=== PATIENT | female | born 1940 | race Caucasian/White ===

== ENCOUNTER 2016-11-22 09:32 | Emergency (ER) | payer MEDICARE, OTHER ==
[~2016-11-22] VITALS: Ht 167.6 cm; Wt 75.6 kg
[~2016-11-22 09:32] MED LIST: ASCO500T8 PO; ASPI-515 PO; CALC-545 PO; ERGO400T2 PO; EZET1TAB4 PO; LEVO50TA PO; MULT-717 PO
[2016-11-22] MEDS ORDERED: SODIUM CHLORIDE 0.9% 1,000 ML IV ONE (10:18)
[2016-11-22] MEDS ORDERED: MORPHINE SULFATE 4 MG/ML, 1ML ONE (10:28)
[2016-11-22] MEDS ORDERED: ONDANSETRON 2MG/ML, 2ML ONE (10:28)
[2016-11-22] MEDS ORDERED: SODIUM CHLORIDE 0.9% 1,000ML IVBOLUS ONE (10:30)
[2016-11-22] MEDS ORDERED: MORPHINE SULFATE 4 MG/ML, 1ML IVPush PRN (10:30)
[2016-11-22] MEDS ORDERED: ONDANSETRON 2MG/ML, 2ML IVPush ONE (10:30)
[2016-11-22 11:01] LABS: DIFF TOTAL CELLS COUNTED 100 CELL DIFF
[2016-11-22 11:03] LABS: BLOOD UREA NITROGEN 23 mg/dL (7-18)
[2016-11-22 11:11] LABS: VERIFY COUNTS? YES
[2016-11-22 12:36] VITALS: BP 155/88
[2016-11-22] MEDS ORDERED: OMNIPAQUE 350 MG/ML, 75ML BOTTLE ONE (12:36)
== END 2016-11-22 15:35 | disposition home or self-care (01) ==
LOC: ED 10:56
DX: S22.42XA Multiple fractures of ribs, left side, initial encounter for closed fracture (principal); W19.XXXA Unspecified fall, initial encounter; Y93.89 Activity, other specified; Y92.009 Unspecified place in unspecified non-institutional (private) residence as the place of occurrence of the external cause; Y99.9 Unspecified external cause status
CPT/HCPCS: 36415; 71020; 71260; 80048; 82040; 85025; 96361; 96374; 96375; 99285; J2405; J7030; Q9967

== ENCOUNTER 2017-11-22 10:31 | Day surgery (SDC) | payer MEDICARE, OTHER ==
[~2017-11-22] VITALS: Ht 167.6 cm; Wt 72.3 kg
[~2017-11-22 10:31] MED LIST changes: +EZET1TAB30 PO; -EZET1TAB4 PO
[2017-11-22 11:05] VITALS: BP 142/94
[2017-11-22] MEDS ORDERED: ASPI-650 PO (11:18)
[2017-11-22] MEDS ORDERED: ROSU10TA PO (11:18)
[2017-11-22] MEDS ORDERED: MIDAZOLAM 1 MG/ML, 5ML ONE (11:40)
[2017-11-22] MEDS ORDERED: FENTANYL PF 100 MCG/2ML ONE (11:40)
[2017-11-22 11:41] LABS: INTERNATIONAL NORMALIZED RATIO 0.95 (0.93-1.1); PROTHROMBIN TIME 9.9 Seconds (9.6-11.5)
[2017-11-22] MEDS ORDERED: LIDOCAINE 2%, 2ML ONE (11:41)
[2017-11-22] MEDS ORDERED: MIDAZOLAM 1 MG/ML, 2ML ONE (11:43)
[2017-11-22 11:44] LABS: CHLORIDE 110 mmol/L (98-107)
[2017-11-22 11:45] LABS: ANION GAP 9 mmol/L (5-15); CALCIUM 8.9 mg/dL (8.5-10.1); CREATININE 0.77 mg/dL (0.55-1.02)
== END 2017-11-22 14:25 | disposition home or self-care (01) ==
LOC: CACL 10:31
PROVIDERS: ATTEND Internal Medicine Cardiovascular Disease
DX: R06.02 Shortness of breath (principal); I10 Essential (primary) hypertension; E78.5 Hyperlipidemia, unspecified
CPT/HCPCS: 36415; 80048; 85610; 93451; 99156; C1894; J2250; J3010; J3490

== ENCOUNTER → 2018-03-03 | Outpatient (CLI) | payer MEDICARE, OTHER ==
[~2018-03-03] MED LIST changes: +ASPI-650 PO; +ROSU10TA PO
== END | disposition home or self-care (01) ==
LOC: CFH 13:14
PROVIDERS: ATTEND Internal Medicine
DX: D71 Functional disorders of polymorphonuclear neutrophils (principal); K44.9 Diaphragmatic hernia without obstruction or gangrene
CPT/HCPCS: 71250

== ENCOUNTER → 2019-07-02 | Outpatient (CLI) | payer MEDICARE, OTHER ==
[~2019-07-02] MED LIST changes: +CLON0.1T22 PO; +MULT1TAB60 PO; -ROSU10TA PO; +ROSU10TA2 PO; +SIMV20TA3 PO
== END | disposition home or self-care (01) ==
LOC: CVU 08:50
PROVIDERS: ATTEND Internal Medicine Cardiovascular Disease
DX: M79.604 Pain in right leg (principal); M79.662 Pain in left lower leg
CPT/HCPCS: 93922

== ENCOUNTER 2019-09-28 01:52 | Emergency (ER) | payer MEDICARE, OTHER ==
[~2019-09-28] VITALS: Ht 168.9 cm; Wt 68.1 kg
[~2019-09-28 01:52] MED LIST changes: +SIMV20TA19 PO; -SIMV20TA3 PO
[2019-09-28] MEDS ORDERED: TRANEXAMIC ACID 100 MG/ML, 10ML IV ONE (02:00)
[2019-09-28] MEDS ORDERED: TRANEXAMIC ACID 100 MG/ML, 10ML ONE (02:27)
[2019-09-28] MEDS ORDERED: ASPI-650 PO (03:09)
[2019-09-28] MEDS ORDERED: LIDOCAINE 1%-EPI 1:100K, 20ML ONE (03:33)
--- NOTE | 2019-09-28 03:33 | NUR ---
Bleeding persists after TXA dressing applied.
[2019-09-28] MEDS ORDERED: NEOSPORIN OINT. PKT 1 PACKET ONE (03:43)
[2019-09-28 04:03] VITALS: BP 129/68
== END 2019-09-28 04:25 | disposition home or self-care (01) ==
LOC: ED 02:44
DX: S81.811A Laceration without foreign body, right lower leg, initial encounter (principal); I87.2 Venous insufficiency (chronic) (peripheral); Z86.39 Personal history of other endocrine, nutritional and metabolic disease; X58.XXXA Exposure to other specified factors, initial encounter; Y93.89 Activity, other specified; Y92.009 Unspecified place in unspecified non-institutional (private) residence as the place of occurrence of the external cause; Y99.8 Other external cause status
CPT/HCPCS: 12001; 99283

== ENCOUNTER → 2019-11-08 | Outpatient (CLI) | payer MEDICARE, OTHER ==
[~2019-11-08] MED LIST changes: +CALC1CAP8 PO; +ROSU5TAB PO; +Vitamin D PO
[2019-11-08 15:53] LABS: BASOPHILS # (AUTO) 0.07 x10^3/uL (0-0.1); BASOPHILS % (AUTO) 1 % (0-1); EOSINOPHILS # (AUTO) 0.22 x10^3/uL (0-0.4); EOSINOPHILS % (AUTO) 3 % (1-7); LYMPHOCYTES # (AUTO) 2.48 x10^3/uL (1-3.4); LYMPHOCYTES % (AUTO) 32 % (22-44); MD NO; MEAN CORPUSCULAR HEMOGLOBIN 29.7 pg (27.0-34.8); MEAN CORPUSCULAR HGB CONC 32.1 g/dL (32.4-35.8); MEAN CORPUSCULAR VOLUME 92.5 fL (80-100); MONOCYTES # (AUTO) 0.84 x10^3/uL (0.2-0.8); MONOCYTES % (AUTO) 11 % (2-9); NEUTROPHILS # (AUTO) 4.27 x10^3/uL (1.8-6.8); NEUTROPHILS % (AUTO) 54 % (42-75); PLATELET COUNT 252 x10^3/uL (130-400); RED BLOOD COUNT 3.59 x10^6/uL (3.82-5.3); RED CELL DISTRIBUTION WIDTH 14.8 % (9.6-15.2)
[2019-11-08 15:59] LABS: ANION GAP 6 mmol/L (5-15); CALCIUM 9.1 mg/dL (8.5-10.1); CHLORIDE 111 mmol/L (98-107); CREATININE 0.75 mg/dL (0.55-1.02)
== END | disposition home or self-care (01) ==
LOC: STAR 15:02
PROVIDERS: ATTEND Orthopaedic Surgery
DX: Z01.818 Encounter for other preprocedural examination (principal); S83.241A Other tear of medial meniscus, current injury, right knee, initial encounter; R94.31 Abnormal electrocardiogram [ECG] [EKG]; X58.XXXA Exposure to other specified factors, initial encounter; Y93.89 Activity, other specified; Y92.89 Other specified places as the place of occurrence of the external cause; Y99.8 Other external cause status
CPT/HCPCS: 36415; 80048; 85025; 87081; 87147; 93005

== ENCOUNTER 2019-11-19 07:53 | Observation (INO) | payer MEDICARE, OTHER ==
[~2019-11-19] VITALS: Ht 167.6 cm; Wt 74.1 kg
[~2019-11-19 07:53] MED LIST changes: +EPINEPHRINE 1 MG/ML, 1ML ONE; +KETOROLAC 60 MG/2 ML ONE; +ROPIvacaine/PF 0.2%, 20 ML ONE; +SODIUM CHLORIDE 0.9% 50 ML ONE; +TRANEXAMIC ACID 100 MG/ML, 10ML ONE
[2019-11-19] MEDS ORDERED: LACTATED RINGERS 1,000 ML IV SCH (08:20)
[2019-11-19 08:21] VITALS: BP 156/89
[2019-11-19] MEDS ORDERED: FENTANYL PF 250 MCG/5ML ONE (08:28)
[2019-11-19] MEDS ORDERED: LIDOCAINE-MPF 1%, 2ML INFIL ONE (08:30)
[2019-11-19] MEDS ORDERED: CHLORHEXIDINE 15 ML UDC ONE (08:32)
[2019-11-19] MEDS ORDERED: CEFAZOLIN 1,000 MG ONE (09:16)
[2019-11-19] MEDS ORDERED: SUCCINYLCHOLINE 20 MG/ML, 10ML ONE (09:16)
[2019-11-19] MEDS ORDERED: DEXAMETHASONE 4 MG/ML, 1ML ONE (09:16)
[2019-11-19] MEDS ORDERED: PROPOFOL 10 MG/ML, 20ML ONE (09:16)
[2019-11-19] MEDS ORDERED: ONDANSETRON 2MG/ML, 2ML ONE (09:16)
[2019-11-19] MEDS ORDERED: FENTANYL PF 100 MCG/2ML IV PRN (10:30)
[2019-11-19] MEDS ORDERED: ALBUTEROL SULFATE 2.5 MG/3 ML NPPB PRN (10:30)
[2019-11-19] MEDS ORDERED: OXYcodone 5 MG/5 ML ORAL.SOL UDC PO PRN (10:30)
[2019-11-19] MEDS ORDERED: hydrALAzine 20 MG/ML, 1ML IV PRN (10:30)
[2019-11-19] MEDS ORDERED: PROMETHAZINE 25 MG/ML, 1ML IV PRN (10:30)
[2019-11-19] MEDS ORDERED: LABETALOL 5MG/ML, 20ML IV PRN (10:30)
[2019-11-19] MEDS ORDERED: ACETAMINOPHEN 325 MG TABLET PO PRN (10:30)
[2019-11-19] MEDS ORDERED: ONDANSETRON 2MG/ML, 2ML IV PRN (11:00)
[2019-11-19] MEDS ORDERED: HYDROmorphone 1 MG/ML, 1ML INJ IVPush PRN (11:00)
[2019-11-19] MEDS ORDERED: BISACODYL 10 MG SUPP PR PRN (11:00)
[2019-11-19] MEDS ORDERED: DIPHENHYDRAMINE 50 MG CAPSULE PO PRN (11:00)
[2019-11-19] MEDS ORDERED: PROMETHAZINE 25 MG/ML, 1ML IM PRN (11:00)
[2019-11-19] MEDS ORDERED: SENNA/DOCUSATE TABLET PO PRN (11:00)
[2019-11-19] MEDS ORDERED: ONDANSETRON 4 MG TABLET PO PRN (11:00)
[2019-11-19] MEDS ORDERED: PSYLLIUM PACKET PO PRN (11:00)
[2019-11-19] MEDS: ACETAMINOPHEN 500 MG TABLET PO SCH ×3 (11:00→23:00)
[2019-11-19] MEDS ORDERED: MAGNESIUM HYDROXIDE 8%, 30ML UDC PO PRN (11:00)
[2019-11-19] MEDS ORDERED: ALUMINUM/MAG/SIMETHICONE 30 ML UDC PO PRN (11:00)
[2019-11-19] MEDS ORDERED: DIAZEPAM 5 MG TABLET PO PRN (11:00)
[2019-11-19] MEDS ORDERED: ZOLPIDEM 5MG TABLET PO PRN (11:00)
[2019-11-19] MEDS ORDERED: OXYcodone IR 5MG TABLET PO PRN (11:00)
[2019-11-19] MEDS ORDERED: PROMETHAZINE 12.5 MG SUPP PR PRN (11:00)
[2019-11-19] MEDS ORDERED: OXYcodone 5 MG/5 ML ORAL.SOL UDC ONE (11:01)
[2019-11-19] MEDS ORDERED: ACETAMINOPHEN 650 MG/20.3 ML UDC ONE (11:01)
[2019-11-19] MEDS ORDERED: HYDROmorphone 1 MG/ML, 1ML INJ ONE (11:13)
[2019-11-19] MEDS: HYDROmorphone 2 MG/ML, 1ML IVPush PRN ×3 (11:15→11:30)
[2019-11-19] MEDS: CALCIUM/VITAMIN D3 250-125 TABLET PO SCH ×2 (12:00→17:00)
[2019-11-19 14:03] VITALS: BP 144/85
[2019-11-19 14:50] VITALS: BP 150/91
[2019-11-19] MEDS ORDERED: SCOPOLAMINE 1MG PATCH TD ONE (16:30)
[2019-11-19] MEDS: FERROUS SULFATE 325 MG TABLET PO SCH (17:33)
[2019-11-19] MEDS: CEFAZOLIN PMX 1GM/50ML 50 ML IVPB SCH (17:38)
[2019-11-19] MEDS: ASPIRIN 81 MG TABLET EC PO SCH ×2 (17:38→21:00)
[2019-11-19 19:05] VITALS: BP 140/82
[2019-11-19] MEDS: KETOROLAC 30 MG/1 ML IV SCH (19:44)
[2019-11-19] MEDS: D5%-0.45% NACL 1,000 ML IV SCH (20:30)
[2019-11-19] MEDS: ROSUVASTATIN CALCIUM 10 MG PO SCH (21:00)
[2019-11-19] MEDS: DOCUSATE 100 MG CAPSULE PO SCH (21:02)
[2019-11-20 00:19] VITALS: BP 96/59
[2019-11-20] MEDS: CEFAZOLIN PMX 1GM/50ML 50 ML IVPB SCH (02:05)
[2019-11-20] MEDS: KETOROLAC 30 MG/1 ML IV SCH ×2 (04:11→11:32)
[2019-11-20 04:22] VITALS: BP 124/77
[2019-11-20] MEDS: ACETAMINOPHEN 500 MG TABLET PO SCH ×4 (05:00→23:00)
[2019-11-20] MEDS ORDERED: DEXAMETHASONE 4 MG/ML, 1ML IVPush SCH (06:00)
[2019-11-20] MEDS: LEVOTHYROXINE 50 MCG TABLET PO SCH (06:00)
[2019-11-20 07:37] VITALS: BP 156/82
[2019-11-20] MEDS: D5%-0.45% NACL 1,000 ML IV SCH ×2 (07:51→22:10)
[2019-11-20] MEDS: DOCUSATE 100 MG CAPSULE PO SCH ×2 (08:27→20:42)
[2019-11-20] MEDS: ASPIRIN 81 MG TABLET EC PO SCH ×2 (08:27→20:42)
[2019-11-20] MEDS: ASCORBIC ACID 500 MG TABLET PO SCH ×2 (08:27→08:44)
[2019-11-20] MEDS: CALCIUM/VITAMIN D3 250-125 TABLET PO SCH ×3 (08:27→16:44)
[2019-11-20] MEDS: FERROUS SULFATE 325 MG TABLET PO SCH ×2 (08:28→17:45)
[2019-11-20] MEDS: MULTIVITAMINS/MINERALS TABLET PO SCH (08:28)
[2019-11-20] MEDS ORDERED: KETOROLAC 30 MG/1 ML ONE (11:28)
[2019-11-20 14:22] VITALS: BP 99/62
[2019-11-20 19:47] VITALS: BP 109/63
[2019-11-20] MEDS: ROSUVASTATIN CALCIUM 10 MG PO SCH (21:00)
[2019-11-21 00:23] VITALS: BP 128/71
[2019-11-21] MEDS: LEVOTHYROXINE 50 MCG TABLET PO SCH (05:48)
[2019-11-21] MEDS: ACETAMINOPHEN 500 MG TABLET PO SCH (05:48)
[2019-11-21 08:11] VITALS: BP 130/74
[2019-11-21] MEDS: CALCIUM/VITAMIN D3 250-125 TABLET PO SCH (08:21)
[2019-11-21] MEDS: MULTIVITAMINS/MINERALS TABLET PO SCH (08:21)
[2019-11-21] MEDS: ASCORBIC ACID 500 MG TABLET PO SCH (08:22)
[2019-11-21] MEDS: FERROUS SULFATE 325 MG TABLET PO SCH (08:22)
[2019-11-21] MEDS: DOCUSATE 100 MG CAPSULE PO SCH (08:22)
[2019-11-21] MEDS: ASPIRIN 81 MG TABLET EC PO SCH (08:22)
[2019-11-21] MEDS: D5%-0.45% NACL 1,000 ML IV SCH (11:00)
[2019-11-21 11:30] VITALS: BP 132/76
== END 2019-11-21 11:35 | disposition home or self-care (01) ==
LOC: OUT 07:53 → 4NE 10:41 → OUT 10:41 → 4NE 11:44
PROVIDERS: ADMIT Orthopaedic Surgery; ATTEND Orthopaedic Surgery
DX: M17.11 Unilateral primary osteoarthritis, right knee (principal); M21.061 Valgus deformity, not elsewhere classified, right knee; E78.2 Mixed hyperlipidemia; I10 Essential (primary) hypertension; K21.9 Gastro-esophageal reflux disease without esophagitis; Z79.82 Long term (current) use of aspirin; Z82.49 Family history of ischemic heart disease and other diseases of the circulatory system; Z86.73 Personal history of transient ischemic attack (TIA), and cerebral infarction without residual deficits
CPT/HCPCS: 27447; 36415; 73560; 85014; 85018; 96365; 96366; 96372; 96375; 96376; 97110; 97116; 97161; 97165; 97530; C1713; C1776; G0378; J0171; J0330; J0690; J1100; J1170; J1885; J2405; J2550; J2704; J2795; J3010; J3490; J7120